=== PATIENT | female | born 1940 | race Hispanic/Latino ===

== ENCOUNTER 2022-06-27 12:36 | Inpatient (IN) | payer MEDICARE ==
[2022-06-27] MEDS ORDERED: MELATONIN 5 MG TAB PO PRN (20:35)
[2022-06-27] MEDS: traZODone 50 MG TAB PO SCH (21:12)
[2022-06-27] MEDS ORDERED: MEMANTINE 10 MG TAB PO SCH (22:00)
[2022-06-27 23:07] LABS: Basophils # (Auto) 0.1 K/mm3 (0.0-0.1); Basophils % (Auto) 0.8 % (0.0-1.8); Eosinophils % (Auto) 0.6 % (0.0-4.3); Hematocrit 39.9 % (30.3-42.9); Hemoglobin 13.2 gm/dl (10.1-14.3); Lymphocytes # (Auto) 1.2 K/mm3 (1.2-5.4); Lymphocytes % (Auto) 18.9 % (13.4-35.0); Mean Corpuscular HGB Conc 33 % (30-34); Mean Corpuscular Volume 88 fl (79-97); Monocytes # (Auto) 0.7 K/mm3 (0.0-0.8); Platelet Count 244 K/mm3 (140-440); Red Blood Count 4.52 M/mm3 (3.65-5.03); Red Cell Distribution Width 14.2 % (13.2-15.2)
[2022-06-28 02:37] LABS: Alanine Aminotransferase 13 units/L (7-56); Albumin 4.4 g/dL (3.9-5); Blood Urea Nitrogen 9 mg/dL (7-17); Calcium 9.9 mg/dL (8.4-10.2); Chol/HDL Ratio 2.73 %; HDL Cholesterol 69 mg/dL (40-59); Hemolysis Index 22; LDL Cholesterol,Direct 102 mg/dL (50-130)
[2022-06-28 03:04] LABS: BUN/Creatinine Ratio 13
[2022-06-28] MEDS ORDERED: NON-FORMULARY EACH (Apixaban 2.5 MG Tablet) PO SCH (10:00)
[2022-06-28] MEDS ORDERED: NON-FORMULARY EACH (Rosuvastatin Calcium [Crestor] 20 MG Tablet) PO SCH (10:00)
[2022-06-28] MEDS: PARoxetine 20 MG TAB PO SCH ×2 (10:17→10:23)
[2022-06-28] MEDS: MEMANTINE 10 MG TAB PO SCH ×3 (10:17→21:19)
[2022-06-28] MEDS: LISINOPRIL 5 MG TAB PO SCH ×2 (10:17→10:23)
--- NOTE | 2022-06-28 11:01 | History and Physical Report ---
GP History & Physical - History of Present Illness Date of admission: 06/27/22 Date of Examination: 06/28/22 Reason for Admission: Danger to self, Failure of Outpatient Treatment, Severe anxiety/depression, Unable to care for self History of Present Illness: The patient was seen today. [facility] for threatening to blow her brains out. During my evaluation, the patient is confused. She is pacing, and easily irritable. She is confused, with disorganized thoughts. She is delusional. She is walking around and appears to be looking for something. She says "I didn't hire you. You don't have to do anything. December on out of here." She is observed going into another patient's room. I parole hearing officer front of the door to try and keep her out. She pushes me to the side and goes in the room. The patient calls me an "asshole." Staff says the patient has been delusional, paranoid and hallucinating. REVIEW OF SYSTEMS Unable to assess MENTAL STATUS EXAMINATION Unable to assess Diagnoses: Dementia with Behavioral Disturbance Major Depressive Disorder Treatment Plan Patient admitted for inpatient psychiatric evaluation, medication adjustment and close monitoring The patient's behavior, mood, sleep and appetite will be closely monitored. Patient enrolled in individual and group therapeutic sessions and encouraged to attend. Patient provided with a safe and structured environment. Patient's physical health needs will be addressed by the Hospitalist. Hospitalist Consulted Labs including CBC, CMP, Lipid profile and Hemoglobin A1C levels ordered for baseline reference Social Assessment will be completed and the Outside Event Sales Specialist will work with patient and family to ensure a suitable and safe disposition Medication adjustment will be made as clinically indicated Restarted medications Risperidone 0.25mg po BID Usual Wellness [employer]/Preservation The patient agreed on the treatment plan, understood the risk, benefit, alternative treatment, potential consequence of no treatment, and gave informed consent. Estimated days: 7 Post hospital care: primary care provider, psychiatric provider Case staffed with Dr. Long Legal Status: Voluntary Reaction to Hospitalization: Accepting Medications and Allergies Allergies Allergy/AdvReac Type Severity Reaction Status Date / Time azithromycin Allergy Unknown Unverified 06/27/22 16:34 levofloxacin [From Levaquin] Allergy Unknown Unverified 06/27/22 16:34 oxytetracycline Allergy Unknown Unverified 06/27/22 16:34 [From Terramycin] Home Medications Medication Instructions Recorded Confirmed Last Taken Type Apixaban [Eliquis] 2.5 mg PO BID 06/27/22 06/27/22 Unknown History Lisinopril [Zestril] 5 mg PO DAILY 06/27/22 06/27/22 Unknown History Memantine [Namenda] 10 mg PO BID 06/27/22 06/27/22 Unknown History PARoxetine [Paxil] 20 mg PO DAILY 06/27/22 06/27/22 Unknown History Rosuvastatin Calcium [Crestor] 20 mg PO DAILY 06/27/22 06/27/22 Unknown History Active Meds: Active Medications Apixaban (Apixaban 2.5 Mg Tab) 2.5 mg PO BID [facility] Atorvastatin Calcium (Atorvastatin 40 Mg Tab) 80 mg PO QHS [facility] Lisinopril (Lisinopril 5 Mg Tab) 5 mg PO DAILY [facility] Last Admin: 06/28/22 10:23 Dose: Not Given Melatonin (Melatonin 5 Mg Tab) 5 mg PO QHS PRN PRN Reason: Sleep Last Admin: 06/28/22 00:35 Dose: 5 mg Memantine (Memantine 10 Mg Tab) 10 mg PO BID [facility] Last Admin: 06/28/22 10:22 Dose: Not Given Paroxetine HCl (Paroxetine 20 Mg Tab) 20 mg PO DAILY [facility] Last Admin: 06/28/22 10:23 Dose: Not Given Trazodone HCl (Trazodone 50 Mg Tab) 50 mg PO QHS [facility] Last Admin: 06/27/22 21:12 Dose: 50 mg Results - Results Labs/Vitals: Laboratory Last Values WBC 6.4 K/mm3 (4.5-11.0) 06/27/22 22:43 RBC 4.52 M/mm3 (3.65-5.03) 06/27/22 22:43 Hgb 13.2 gm/dl (10.1-14.3) 06/27/22 22:43 Hct 39.9 % (30.3-42.9) 06/27/22 22:43 MCV 88 fl (79-97) 06/27/22 22:43 MCH 29 pg (28-32) 06/27/22 22:43 MCHC 33 % (30-34) 06/27/22 22:43 RDW 14.2 % (13.2-15.2) 06/27/22 22:43 Plt Count 244 K/mm3 (140-440) 06/27/22 22:43 Lymph % (Auto) 18.9 % (13.4-35.0) 06/27/22 22:43 [place] % (Auto) 11.0 % (0.0-7.3) H 06/27/22 22:43 Eos % (Auto) 0.6 % (0.0-4.3) 06/27/22 22:43 Baso % (Auto) 0.8 % (0.0-1.8) 06/27/22 22:43 Lymph # (Auto) 1.2 K/mm3 (1.2-5.4) 06/27/22 22:43 [place] # (Auto) 0.7 K/mm3 (0.0-0.8) 06/27/22 22:43 Eos # (Auto) 0.0 K/mm3 (0.0-0.4) 06/27/22 22:43 Baso # (Auto) 0.1 K/mm3 (0.0-0.1) 06/27/22 22:43 Seg Neutrophils % 68.7 % (40.0-70.0) 06/27/22 22:43 Seg Neutrophils # 4.4 K/mm3 (1.8-7.7) 06/27/22 22:43 Sodium 140 mmol/L (137-145) 06/27/22 22:43 Potassium 3.9 mmol/L (3.6-5.0) 06/27/22 22:43 Chloride 101.3 mmol/L (98-107) 06/27/22 22:43 Carbon Dioxide 22 mmol/L (22-30) 06/27/22 22:43 Anion Gap 21 mmol/L 06/27/22 22:43 BUN 9 mg/dL (7-17) 06/27/22 22:43 Creatinine 0.7 mg/dL (0.6-1.2) 06/27/22 22:43 Estimated GFR > 60 ml/min 06/27/22 22:43 BUN/Creatinine Ratio 13 % 06/27/22 22:43 Glucose 109 mg/dL (65-100) H 06/27/22 22:43 POC Glucose 141 mg/dL (70-105) H 06/27/22 17:22 Hemoglobin A1c 5.5 % (4-6) 06/27/22 22:43 Calcium 9.9 mg/dL (8.4-10.2) 06/27/22 22:43 Total Bilirubin 1.40 mg/dL (0.1-1.2) H 06/27/22 22:43 AST 18 units/L (5-40) 06/27/22 22:43 ALT 13 units/L (7-56) 06/27/22 22:43 Alkaline Phosphatase 101 units/L (35-129) 06/27/22 22:43 Total Protein 6.4 g/dL (6.3-8.2) 06/27/22 22:43 Albumin 4.4 g/dL (3.9-5) 06/27/22 22:43 Albumin/Globulin Ratio 2.2 % 06/27/22 22:43 Triglycerides 83 mg/dL (2-149) 06/27/22 22:43 Cholesterol 189 mg/dL (50-199) 06/27/22 22:43 LDL Cholesterol Direct 102 mg/dL (50-130) 06/27/22 22:43 HDL Cholesterol 69 mg/dL (40-59) H 06/27/22 22:43 Cholesterol/HDL Ratio 2.73 % 06/27/22 22:43 TSH 2.570 mlU/mL (0.270-4.200) 06/27/22 22:43 Last Vital Signs Temp 97.5 F L 06/27/22 22:00 Pulse 90 06/27/22 22:00 Resp 18 06/27/22 22:00 BP 183/81 06/27/22 22:00 Pulse Ox 98 06/27/22 22:00 Physical Examination - Constitutional Vitals: Vital Signs Temp Pulse Resp BP Pulse Ox 97.5 F L 90 18 183/81 98 06/27/22 22:00 06/27/22 22:00 06/27/22 22:00 06/27/22 22:00 06/27/22 22:00 Temperature -Last 24 Hours Temperature 97.5 F Temperature 97.5 F Mental Status Exam - Vital signs Last Vital Signs Temp 97.5 F L 06/27/22 22:00 Pulse 90 06/27/22 22:00 Resp 18 06/27/22 22:00 BP 183/81 06/27/22 22:00 Pulse Ox 98 06/27/22 22:00 Physician Certification - Certification Statement Physician Certification Statement: This is an acknowledgement statement that YAZMIN RYAN is a 81 year old F who requires inpatient psychiatric admission for treatment which could reasonably be expected to improve the patient's condition for Estimated period of time patient will need to remain in the hospital: [ ] Plan for post-hospital care: [ ]
--- NOTE | 2022-06-28 11:14 | Consultation ---
Medications and Allergies Allergies Allergy/AdvReac Type Severity Reaction Status Date / Time azithromycin Allergy Unknown Unverified 06/27/22 16:34 levofloxacin [From Levaquin] Allergy Unknown Unverified 06/27/22 16:34 oxytetracycline Allergy Unknown Unverified 06/27/22 16:34 [From Terramycin] Home Medications Medication Instructions Recorded Confirmed Last Taken Type Apixaban [Eliquis] 2.5 mg PO BID 06/27/22 06/27/22 Unknown History Lisinopril [Zestril] 5 mg PO DAILY 06/27/22 06/27/22 Unknown History Memantine [Namenda] 10 mg PO BID 06/27/22 06/27/22 Unknown History PARoxetine [Paxil] 20 mg PO DAILY 06/27/22 06/27/22 Unknown History Rosuvastatin Calcium [Crestor] 20 mg PO DAILY 06/27/22 06/27/22 Unknown History Active Meds: Active Medications Apixaban (Apixaban 2.5 Mg Tab) 2.5 mg PO BID [facility] Atorvastatin Calcium (Atorvastatin 40 Mg Tab) 80 mg PO QHS [facility] Lisinopril (Lisinopril 5 Mg Tab) 5 mg PO DAILY [facility] Last Admin: 06/28/22 10:23 Dose: Not Given Melatonin (Melatonin 5 Mg Tab) 5 mg PO QHS PRN PRN Reason: Sleep Last Admin: 06/28/22 00:35 Dose: 5 mg Memantine (Memantine 10 Mg Tab) 10 mg PO BID [facility] Last Admin: 06/28/22 10:22 Dose: Not Given Paroxetine HCl (Paroxetine 20 Mg Tab) 20 mg PO DAILY [facility] Last Admin: 06/28/22 10:23 Dose: Not Given Risperidone (Risperidone 0.25 Mg Tab) 0.25 mg PO BID [facility] Trazodone HCl (Trazodone 50 Mg Tab) 50 mg PO QHS [facility] Last Admin: 06/27/22 21:12 Dose: 50 mg Exam - Constitutional Vitals: Temp Pulse Resp BP Pulse Ox 97.5 F L 90 18 183/81 98 06/27/22 22:00 06/27/22 22:00 06/27/22 22:00 06/27/22 22:00 06/27/22 22:00 Results - Labs CBC & Chem 7: 06/27/22 22:43 06/27/22 22:43 Labs: Abnormal lab results 06/27/22 06/27/22 06/27/22 Range/Units 17:22 22:43 22:43 [place] % (Auto) 11.0 H (0.0-7.3) % Glucose 109 H (65-100) mg/dL POC Glucose 141 H (70-105) mg/dL Total Bilirubin 1.40 H (0.1-1.2) mg/dL HDL Cholesterol 69 H (40-59) mg/dL
[2022-06-28] MEDS: APIXABAN 2.5 MG TAB PO SCH ×2 (11:33→21:19)
[2022-06-28] MEDS: risperiDONE 0.25 MG TAB PO SCH ×2 (13:35→21:19)
[2022-06-28] MEDS: traZODone 50 MG TAB PO SCH (21:19)
[2022-06-29] MEDS: PARoxetine 20 MG TAB PO SCH (10:22)
[2022-06-29] MEDS: MEMANTINE 10 MG TAB PO SCH ×2 (10:22→21:53)
[2022-06-29] MEDS: risperiDONE 0.25 MG TAB PO SCH ×2 (10:22→21:53)
[2022-06-29] MEDS: APIXABAN 2.5 MG TAB PO SCH ×2 (10:23→21:53)
[2022-06-29] MEDS: LISINOPRIL 5 MG TAB PO SCH (10:25)
--- NOTE | 2022-06-29 12:03 | Progress Note ---
Subjective Date of service: 06/29/22 Principal diagnosis: Dementia with Behavioral Disturbance Subjective Comment: The patient was seen today. She's less anxious today. She is still confused and delusional. She is speaking nonsensically. REVIEW OF SYSTEMS Unable to assess MENTAL STATUS EXAMINATION Unable to assess Diagnoses: Dementia with Behavioral Disturbance Major Depressive Disorder Treatment Plan Patient admitted for inpatient psychiatric evaluation, medication adjustment and close monitoring The patient's behavior, mood, sleep and appetite will be closely monitored. Patient enrolled in individual and group therapeutic sessions and encouraged to attend. Patient provided with a safe and structured environment. Patient's physical health needs will be addressed by the Hospitalist. Hospitalist Consulted Labs including CBC, CMP, Lipid profile and Hemoglobin A1C levels ordered for baseline reference Social Assessment will be completed and the Narrow Gauge Engineer will work with patient and family to ensure a suitable and safe disposition Medication adjustment will be made as clinically indicated Increase Risperidone 0.5mg po BID Usual Wellness L[employer] Day/Preservation The patient agreed on the treatment plan, understood the risk, benefit, alternative treatment, potential consequence of no treatment, and gave informed consent. Estimated days: 7 Post hospital care: primary care provider, psychiatric provider Case staffed with Dr. Long Medications and Allergies Allergies Allergy/AdvReac Type Severity Reaction Status Date / Time azithromycin Allergy Unknown Unverified 06/27/22 16:34 levofloxacin [From Levaquin] Allergy Unknown Unverified 06/27/22 16:34 oxytetracycline Allergy Unknown Unverified 06/27/22 16:34 [From Terramycin] Home Medications Medication Instructions Recorded Confirmed Last Taken Type Apixaban [Eliquis] 2.5 mg PO BID 06/27/22 06/27/22 Unknown History Lisinopril [Zestril] 5 mg PO DAILY 06/27/22 06/27/22 Unknown History Memantine [Namenda] 10 mg PO BID 06/27/22 06/27/22 Unknown History PARoxetine [Paxil] 20 mg PO DAILY 06/27/22 06/27/22 Unknown History Rosuvastatin Calcium [Crestor] 20 mg PO DAILY 06/27/22 06/27/22 Unknown History Active Meds: Active Medications Apixaban (Apixaban 2.5 Mg Tab) 2.5 mg PO BID [facility] Last Admin: 06/29/22 10:23 Dose: 2.5 mg Atorvastatin Calcium (Atorvastatin 40 Mg Tab) 80 mg PO QHS [facility] Last Admin: 06/28/22 21:15 Dose: 80 mg Lisinopril (Lisinopril 5 Mg Tab) 5 mg PO DAILY [facility] Last Admin: 06/29/22 10:25 Dose: 5 mg Melatonin (Melatonin 5 Mg Tab) 5 mg PO QHS PRN PRN Reason: Sleep Last Admin: 06/28/22 00:35 Dose: 5 mg Memantine (Memantine 10 Mg Tab) 10 mg PO BID [facility] Last Admin: 06/29/22 10:22 Dose: 10 mg Paroxetine HCl (Paroxetine 20 Mg Tab) 20 mg PO DAILY [facility] Last Admin: 06/29/22 10:22 Dose: 20 mg Risperidone (Risperidone 0.25 Mg Tab) 0.25 mg PO BID [facility] Last Admin: 06/29/22 10:22 Dose: 0.25 mg Trazodone HCl (Trazodone 50 Mg Tab) 50 mg PO QHS [facility] Last Admin: 06/28/22 21:19 Dose: 50 mg Results - Results Labs/Vitals: Laboratory Last Values WBC 6.4 K/mm3 (4.5-11.0) 06/27/22 22:43 RBC 4.52 M/mm3 (3.65-5.03) 06/27/22 22:43 Hgb 13.2 gm/dl (10.1-14.3) 06/27/22 22:43 Hct 39.9 % (30.3-42.9) 06/27/22 22:43 MCV 88 fl (79-97) 06/27/22 22:43 MCH 29 pg (28-32) 06/27/22 22:43 MCHC 33 % (30-34) 06/27/22 22:43 RDW 14.2 % (13.2-15.2) 06/27/22 22:43 Plt Count 244 K/mm3 (140-440) 06/27/22 22:43 Lymph % (Auto) 18.9 % (13.4-35.0) 06/27/22 22:43 [place] % (Auto) 11.0 % (0.0-7.3) H 06/27/22 22:43 Eos % (Auto) 0.6 % (0.0-4.3) 06/27/22 22:43 Baso % (Auto) 0.8 % (0.0-1.8) 06/27/22 22:43 Lymph # (Auto) 1.2 K/mm3 (1.2-5.4) 06/27/22 22:43 [place] # (Auto) 0.7 K/mm3 (0.0-0.8) 06/27/22 22:43 Eos # (Auto) 0.0 K/mm3 (0.0-0.4) 06/27/22 22:43 Baso # (Auto) 0.1 K/mm3 (0.0-0.1) 06/27/22 22:43 Seg Neutrophils % 68.7 % (40.0-70.0) 06/27/22 22:43 Seg Neutrophils # 4.4 K/mm3 (1.8-7.7) 06/27/22 22:43 Sodium 140 mmol/L (137-145) 06/27/22 22:43 Potassium 3.9 mmol/L (3.6-5.0) 06/27/22 22:43 Chloride 101.3 mmol/L (98-107) 06/27/22 22:43 Carbon Dioxide 22 mmol/L (22-30) 06/27/22 22:43 Anion Gap 21 mmol/L 06/27/22 22:43 BUN 9 mg/dL (7-17) 06/27/22 22:43 Creatinine 0.7 mg/dL (0.6-1.2) 06/27/22 22:43 Estimated GFR > 60 ml/min 06/27/22 22:43 BUN/Creatinine Ratio 13 % 06/27/22 22:43 Glucose 109 mg/dL (65-100) H 06/27/22 22:43 POC Glucose 141 mg/dL (70-105) H 06/27/22 17:22 Hemoglobin A1c 5.5 % (4-6) 06/27/22 22:43 Calcium 9.9 mg/dL (8.4-10.2) 06/27/22 22:43 Total Bilirubin 1.40 mg/dL (0.1-1.2) H 06/27/22 22:43 AST 18 units/L (5-40) 06/27/22 22:43 ALT 13 units/L (7-56) 06/27/22 22:43 Alkaline Phosphatase 101 units/L (35-129) 06/27/22 22:43 Total Protein 6.4 g/dL (6.3-8.2) 06/27/22 22:43 Albumin 4.4 g/dL (3.9-5) 06/27/22 22:43 Albumin/Globulin Ratio 2.2 % 06/27/22 22:43 Triglycerides 83 mg/dL (2-149) 06/27/22 22:43 Cholesterol 189 mg/dL (50-199) 06/27/22 22:43 LDL Cholesterol Direct 102 mg/dL (50-130) 06/27/22 22:43 HDL Cholesterol 69 mg/dL (40-59) H 06/27/22 22:43 Cholesterol/HDL Ratio 2.73 % 06/27/22 22:43 TSH 2.570 mlU/mL (0.270-4.200) 06/27/22 22:43 Last Vital Signs Temp 98.2 F 06/29/22 06:49 Pulse 90 06/29/22 10:25 Resp 18 06/29/22 06:49 BP 157/67 06/29/22 10:25 Pulse Ox 93 06/29/22 06:49
[2022-06-29] MEDS: traZODone 100 MG TAB PO SCH (22:00)
[2022-06-30] MEDS: APIXABAN 2.5 MG TAB PO SCH ×2 (10:17→21:22)
[2022-06-30] MEDS: MEMANTINE 10 MG TAB PO SCH ×2 (10:17→21:22)
[2022-06-30] MEDS: PARoxetine 20 MG TAB PO SCH (10:17)
[2022-06-30] MEDS: LISINOPRIL 5 MG TAB PO SCH (10:18)
[2022-06-30] MEDS: risperiDONE 0.25 MG TAB PO SCH ×2 (10:18→21:22)
[2022-06-30] MEDS: traZODone 100 MG TAB PO SCH (21:22)
[2022-07-01] MEDS: PARoxetine 20 MG TAB PO SCH (09:47)
[2022-07-01] MEDS: MEMANTINE 10 MG TAB PO SCH ×2 (09:47→21:10)
[2022-07-01] MEDS: risperiDONE 0.25 MG TAB PO SCH ×2 (09:48→21:10)
[2022-07-01] MEDS: APIXABAN 2.5 MG TAB PO SCH ×2 (09:48→21:09)
[2022-07-01] MEDS: LISINOPRIL 5 MG TAB PO SCH (09:48)
[2022-07-01] MEDS: traZODone 100 MG TAB PO SCH (21:09)
--- NOTE | 2022-07-01 23:11 | Progress Note ---
Subjective Date of service: 06/30/22 Principal diagnosis: Dementia with Behavioral Disturbance Subjective Comment: 06/30: Patient was seen today. Patient was alert, disoriented x3, but cooperative throughout the interview. Patient responds tangentially throughout the interview. Patient reports feeling "not so hot yet." Patient reports she's not able to remember why she was brought to the hospital. "I have no idea how this got so horrible." Patient denies feeling depressed and denies history of suicidal ideation with protective factors of her grandchildren "I don't want to leave them." Patient reports anxiety d/t missing her grandchildren. Patient reports feeling fearful because she doesn't know why she's here. Patient reports good sleep and good appetite. Patient denies HI AVH. PAST PSYCHIATRIC HISTORY: Diagnoses: Denies Suicide attempts or Self-harm behavior: Denies Prior psychiatric hospitalizations: Denies Substance Abuse history: Denies Previous psychiatric medications tried: Denies Outpatient treatment: Denies PAST MEDICAL HISTORY: None reported Family Psychiatric History: None reported or documented SOCIAL HISTORY Marital Status: Living Arrangements: with Employment Status: Retired Access to guns/weapons: Denies History of Abuse:Denies Legal History: Denies REVIEW OF SYSTEMS Constitutional: Negative for weight loss ENT: Negative for stridor Respiratory: Negative for cough or hemoptysis All other systems reviewed and are negative MENTAL STATUS EXAMINATION General Appearance and Behavior: Age appropriate, wearing appropriate clothes, cooperative Cooperation: cooperative Psychomotor Behavior: Psychomotor normal Mood: anxious, fearful Affect and affective range: congruent with stated affect, appropriate to situation Thought Process: Goal-oriented, tangential Thought Content: Reality based Speech: Normal volume, Regular rate and rhythm Suicidal Ideation: Denies Homicidal Ideation: Denies Hallucination: Denies Delusions: Denies Impulse Control: Normal Insight and Judgment: Poor Memory: Poor Attention: Distracted Orientation: Alert, not oriented Diagnoses: Dementia with Behavioral Disturbance Major Depressive Disorder Treatment Plan Patient admitted for inpatient psychiatric evaluation, medication adjustment and close monitoring The patient's behavior, mood, sleep and appetite will be closely monitored. Patient enrolled in individual and group therapeutic sessions and encouraged to attend. Patient provided with a safe and structured environment. Patient's physical health needs will be addressed by the Hospitalist. Hospitalist Consulted Labs including CBC, CMP, Lipid profile and Hemoglobin A1C levels ordered for baseline reference Social Assessment will be completed and the Weigher And Grader will work with patient and family to ensure a suitable and safe disposition Medication adjustment will be made as clinically indicated Maintain Risperidone 0.5mg po BID Usual Wellness [employer]/Preservation The patient agreed on the treatment plan, understood the risk, benefit, alternative treatment, potential consequence of no treatment, and gave informed consent. Estimated days: 7 Post hospital care: primary care provider, psychiatric provider Case staffed with Dr. Long Medications and Allergies Allergies Allergy/AdvReac Type Severity Reaction Status Date / Time azithromycin Allergy Unknown Unverified 06/27/22 16:34 levofloxacin [From Levaquin] Allergy Unknown Unverified 06/27/22 16:34 oxytetracycline Allergy Unknown Unverified 06/27/22 16:34 [From Terramycin] Home Medications Medication Instructions Recorded Confirmed Last Taken Type Apixaban [Eliquis] 2.5 mg PO BID 06/27/22 06/27/22 Unknown History Lisinopril [Zestril] 5 mg PO DAILY 06/27/22 06/27/22 Unknown History Memantine [Namenda] 10 mg PO BID 06/27/22 06/27/22 Unknown History PARoxetine [Paxil] 20 mg PO DAILY 06/27/22 06/27/22 Unknown History Rosuvastatin Calcium [Crestor] 20 mg PO DAILY 06/27/22 06/27/22 Unknown History Active Meds: Active Medications Apixaban (Apixaban 2.5 Mg Tab) 2.5 mg PO BID [facility] Last Admin: 07/01/22 21:09 Dose: 2.5 mg Atorvastatin Calcium (Atorvastatin 40 Mg Tab) 80 mg PO QHS [facility] Last Admin: 07/01/22 21:10 Dose: 80 mg Lisinopril (Lisinopril 5 Mg Tab) 5 mg PO DAILY [facility] Last Admin: 07/01/22 09:48 Dose: 5 mg Melatonin (Melatonin 5 Mg Tab) 5 mg PO QHS PRN PRN Reason: Sleep Last Admin: 06/28/22 00:35 Dose: 5 mg Memantine (Memantine 10 Mg Tab) 10 mg PO BID [facility] Last Admin: 07/01/22 21:10 Dose: 10 mg Paroxetine HCl (Paroxetine 20 Mg Tab) 20 mg PO DAILY [facility] Last Admin: 07/01/22 09:47 Dose: 20 mg Risperidone (Risperidone 0.25 Mg Tab) 0.5 mg PO BID [facility] Last Admin: 07/01/22 21:10 Dose: 0.5 mg Trazodone HCl (Trazodone 100 Mg Tab) 50 mg PO QHS [facility] Last Admin: 07/01/22 21:09 Dose: 50 mg Results - Results Labs/Vitals: Laboratory Last Values WBC 6.4 K/mm3 (4.5-11.0) 06/27/22 22:43 RBC 4.52 M/mm3 (3.65-5.03) 06/27/22 22:43 Hgb 13.2 gm/dl (10.1-14.3) 06/27/22 22:43 Hct 39.9 % (30.3-42.9) 06/27/22 22:43 MCV 88 fl (79-97) 06/27/22 22:43 MCH 29 pg (28-32) 06/27/22 22:43 MCHC 33 % (30-34) 06/27/22 22:43 RDW 14.2 % (13.2-15.2) 06/27/22 22:43 Plt Count 244 K/mm3 (140-440) 06/27/22 22:43 Lymph % (Auto) 18.9 % (13.4-35.0) 06/27/22 22:43 [place] % (Auto) 11.0 % (0.0-7.3) H 06/27/22 22:43 Eos % (Auto) 0.6 % (0.0-4.3) 06/27/22 22:43 Baso % (Auto) 0.8 % (0.0-1.8) 06/27/22 22:43 Lymph # (Auto) 1.2 K/mm3 (1.2-5.4) 06/27/22 22:43 [place] # (Auto) 0.7 K/mm3 (0.0-0.8) 06/27/22 22:43 Eos # (Auto) 0.0 K/mm3 (0.0-0.4) 06/27/22 22:43 Baso # (Auto) 0.1 K/mm3 (0.0-0.1) 06/27/22 22:43 Seg Neutrophils % 68.7 % (40.0-70.0) 06/27/22 22:43 Seg Neutrophils # 4.4 K/mm3 (1.8-7.7) 06/27/22 22:43 Sodium 140 mmol/L (137-145) 06/27/22 22:43 Potassium 3.9 mmol/L (3.6-5.0) 06/27/22 22:43 Chloride 101.3 mmol/L (98-107) 06/27/22 22:43 Carbon Dioxide 22 mmol/L (22-30) 06/27/22 22:43 Anion Gap 21 mmol/L 06/27/22 22:43 BUN 9 mg/dL (7-17) 06/27/22 22:43 Creatinine 0.7 mg/dL (0.6-1.2) 06/27/22 22:43 Estimated GFR > 60 ml/min 06/27/22 22:43 BUN/Creatinine Ratio 13 % 06/27/22 22:43 Glucose 109 mg/dL (65-100) H 06/27/22 22:43 POC Glucose 141 mg/dL (70-105) H 06/27/22 17:22 Hemoglobin A1c 5.5 % (4-6) 06/27/22 22:43 Calcium 9.9 mg/dL (8.4-10.2) 06/27/22 22:43 Total Bilirubin 1.40 mg/dL (0.1-1.2) H 06/27/22 22:43 AST 18 units/L (5-40) 06/27/22 22:43 ALT 13 units/L (7-56) 06/27/22 22:43 Alkaline Phosphatase 101 units/L (35-129) 06/27/22 22:43 Total Protein 6.4 g/dL (6.3-8.2) 06/27/22 22:43 Albumin 4.4 g/dL (3.9-5) 06/27/22 22:43 Albumin/Globulin Ratio 2.2 % 06/27/22 22:43 Triglycerides 83 mg/dL (2-149) 06/27/22 22:43 Cholesterol 189 mg/dL (50-199) 06/27/22 22:43 LDL Cholesterol Direct 102 mg/dL (50-130) 06/27/22 22:43 HDL Cholesterol 69 mg/dL (40-59) H 06/27/22 22:43 Cholesterol/HDL Ratio 2.73 % 06/27/22 22:43 TSH 2.570 mlU/mL (0.270-4.200) 06/27/22 22:43 Last Vital Signs Temp 98.0 F 07/01/22 18:44 Pulse 68 07/01/22 18:44 Resp 16 07/01/22 18:44 BP 134/65 07/01/22 18:44 Pulse Ox 94 07/01/22 18:44
--- NOTE | 2022-07-01 23:29 | Progress Note ---
Subjective Date of service: 07/01/22 Principal diagnosis: Dementia with Behavioral Disturbance Subjective Comment: 07/01: Patient was seen today. Patient was alert, disoriented x3, but cooperative throughout the interview. Patient responds tangentially throughout the interview. Patient reports feeling disappointed because she wasn't able to go home yesterday. Patient reports "I was praying I was going home. It was a little bit of a let down." Patient denies suicidal ideation "I don't never want to hurt myself." Patient repeatedly references her parents "who are up in their ages." Patient unable to tell me what year is it, where she is, who the last president was. Patient reports thinking about having someone come in for half the day to help take care of her when she leaves the hospital. Patient reports good sleep and good appetite. Patient denies HI AVH. 06/30: Patient was seen today. Patient was alert, disoriented x3, but cooperative throughout the interview. Patient responds tangentially throughout the interview. Patient reports feeling "not so hot yet." Patient reports she's not able to remember why she was brought to the hospital. "I have no idea how this got so horrible." Patient denies feeling depressed and denies history of suicidal ideation with protective factors of her grandchildren "I don't want to leave them." Patient reports anxiety d/t missing her grandchildren. Patient reports feeling fearful because she doesn't know why she's here. Patient reports good sleep and good appetite. Patient denies HI AVH. PAST PSYCHIATRIC HISTORY: Diagnoses: Denies Suicide attempts or Self-harm behavior: Denies Prior psychiatric hospitalizations: Denies Substance Abuse history: Denies Previous psychiatric medications tried: Denies Outpatient treatment: Denies PAST MEDICAL HISTORY: None reported Family Psychiatric History: None reported or documented SOCIAL HISTORY Marital Status: Living Arrangements: with Employment Status: Retired Access to guns/weapons: Denies History of Abuse:Denies Legal History: Denies REVIEW OF SYSTEMS Constitutional: Negative for weight loss ENT: Negative for stridor Respiratory: Negative for cough or hemoptysis All other systems reviewed and are negative MENTAL STATUS EXAMINATION General Appearance and Behavior: Age appropriate, wearing appropriate clothes, cooperative Cooperation: cooperative Psychomotor Behavior: Psychomotor normal Mood: "disappointed," Affect and affective range: congruent with stated affect, tearful Thought Process: Goal-oriented, tangential Thought Content: Reality based Speech: Normal volume, Regular rate and rhythm Suicidal Ideation: Denies Homicidal Ideation: Denies Hallucination: Denies Delusions: Denies Impulse Control: Normal Insight and Judgment: Poor Memory: Poor Attention: Distracted Orientation: Alert, not oriented Diagnoses: Dementia with Behavioral Disturbance Major Depressive Disorder Treatment Plan Patient admitted for inpatient psychiatric evaluation, medication adjustment and close monitoring The patient's behavior, mood, sleep and appetite will be closely monitored. Patient enrolled in individual and group therapeutic sessions and encouraged to attend. Patient provided with a safe and structured environment. Patient's physical health needs will be addressed by the Hospitalist. Hospitalist Consulted Labs including CBC, CMP, Lipid profile and Hemoglobin A1C levels ordered for baseline reference Social Assessment will be completed and the Pit Inspector will work with patient and family to ensure a suitable and safe disposition Medication adjustment will be made as clinically indicated Maintain Risperidone 0.5mg po BID [facility]ual [facility]ness [facility]/Preservation The patient agreed on the treatment plan, understood the risk, benefit, alternative treatment, potential consequence of no treatment, and gave informed consent. Estimated days: 7 Post hospital care: primary care provider, psychiatric provider Case staffed with Dr. Long Medications and Allergies Allergies Allergy/AdvReac Type Severity Reaction Status Date / Time azithromycin Allergy Unknown Unverified 06/27/22 16:34 levofloxacin [From Levaquin] Allergy Unknown Unverified 06/27/22 16:34 oxytetracycline Allergy Unknown Unverified 06/27/22 16:34 [From Terramycin] Home Medications Medication Instructions Recorded Confirmed Last Taken Type Apixaban [Eliquis] 2.5 mg PO BID 06/27/22 06/27/22 Unknown History Lisinopril [Zestril] 5 mg PO DAILY 06/27/22 06/27/22 Unknown History Memantine [Namenda] 10 mg PO BID 06/27/22 06/27/22 Unknown History PARoxetine [Paxil] 20 mg PO DAILY 06/27/22 06/27/22 Unknown History Rosuvastatin Calcium [Crestor] 20 mg PO DAILY 06/27/22 06/27/22 Unknown History Active Meds: Active Medications Apixaban (Apixaban 2.5 Mg Tab) 2.5 mg PO BID SUNDAY Last Admin: 07/01/22 21:09 Dose: 2.5 mg Atorvastatin Calcium (Atorvastatin 40 Mg Tab) 80 mg PO QHS [facility] Last Admin: 07/01/22 21:10 Dose: 80 mg Lisinopril (Lisinopril 5 Mg Tab) 5 mg PO DAILY [facility] Last Admin: 07/01/22 09:48 Dose: 5 mg Melatonin (Melatonin 5 Mg Tab) 5 mg PO QHS PRN PRN Reason: Sleep Last Admin: 06/28/22 00:35 Dose: 5 mg Memantine (Memantine 10 Mg Tab) 10 mg PO BID [facility] Last Admin: 07/01/22 21:10 Dose: 10 mg Paroxetine HCl (Paroxetine 20 Mg Tab) 20 mg PO DAILY [facility] Last Admin: 07/01/22 09:47 Dose: 20 mg Risperidone (Risperidone 0.25 Mg Tab) 0.5 mg PO BID [facility] Last Admin: 07/01/22 21:10 Dose: 0.5 mg Trazodone HCl (Trazodone 100 Mg Tab) 50 mg PO QHS [facility] Last Admin: 07/01/22 21:09 Dose: 50 mg Results - Results Labs/Vitals: Laboratory Last Values WBC 6.4 K/mm3 (4.5-11.0) 06/27/22 22:43 RBC 4.52 M/mm3 (3.65-5.03) 06/27/22 22:43 Hgb 13.2 gm/dl (10.1-14.3) 06/27/22 22:43 Hct 39.9 % (30.3-42.9) 06/27/22 22:43 MCV 88 fl (79-97) 06/27/22 22:43 MCH 29 pg (28-32) 06/27/22 22:43 MCHC 33 % (30-34) 06/27/22 22:43 RDW 14.2 % (13.2-15.2) 06/27/22 22:43 Plt Count 244 K/mm3 (140-440) 06/27/22 22:43 Lymph % (Auto) 18.9 % (13.4-35.0) 06/27/22 22:43 Kay % (Auto) 11.0 % (0.0-7.3) H 06/27/22 22:43 Eos % (Auto) 0.6 % (0.0-4.3) 06/27/22 22:43 Baso % (Auto) 0.8 % (0.0-1.8) 06/27/22 22:43 Lymph # (Auto) 1.2 K/mm3 (1.2-5.4) 06/27/22 22:43 Kay # (Auto) 0.7 K/mm3 (0.0-0.8) 06/27/22 22:43 Eos # (Auto) 0.0 K/mm3 (0.0-0.4) 06/27/22 22:43 Baso # (Auto) 0.1 K/mm3 (0.0-0.1) 06/27/22 22:43 Seg Neutrophils % 68.7 % (40.0-70.0) 06/27/22 22:43 Seg Neutrophils # 4.4 K/mm3 (1.8-7.7) 06/27/22 22:43 Sodium 140 mmol/L (137-145) 06/27/22 22:43 Potassium 3.9 mmol/L (3.6-5.0) 06/27/22 22:43 Chloride 101.3 mmol/L (98-107) 06/27/22 22:43 Carbon Dioxide 22 mmol/L (22-30) 06/27/22 22:43 Anion Gap 21 mmol/L 06/27/22 22:43 BUN 9 mg/dL (7-17) 06/27/22 22:43 Creatinine 0.7 mg/dL (0.6-1.2) 06/27/22 22:43 Estimated GFR > 60 ml/min 06/27/22 22:43 BUN/Creatinine Ratio 13 % 06/27/22 22:43 Glucose 109 mg/dL (65-100) H 06/27/22 22:43 POC Glucose 141 mg/dL (70-105) H 06/27/22 17:22 Hemoglobin A1c 5.5 % (4-6) 06/27/22 22:43 Calcium 9.9 mg/dL (8.4-10.2) 06/27/22 22:43 Total Bilirubin 1.40 mg/dL (0.1-1.2) H 06/27/22 22:43 AST 18 units/L (5-40) 06/27/22 22:43 ALT 13 units/L (7-56) 06/27/22 22:43 Alkaline Phosphatase 101 units/L (35-129) 06/27/22 22:43 Total Protein 6.4 g/dL (6.3-8.2) 06/27/22 22:43 Albumin 4.4 g/dL (3.9-5) 06/27/22 22:43 Albumin/Globulin Ratio 2.2 % 06/27/22 22:43 Triglycerides 83 mg/dL (2-149) 06/27/22 22:43 Cholesterol 189 mg/dL (50-199) 06/27/22 22:43 LDL Cholesterol Direct 102 mg/dL (50-130) 06/27/22 22:43 HDL Cholesterol 69 mg/dL (40-59) H 06/27/22 22:43 Cholesterol/HDL Ratio 2.73 % 06/27/22 22:43 TSH 2.570 mlU/mL (0.270-4.200) 06/27/22 22:43 Last Vital Signs Temp 98.0 F 07/01/22 18:44 Pulse 68 07/01/22 18:44 Resp 16 07/01/22 18:44 BP 134/65 07/01/22 18:44 Pulse Ox 94 07/01/22 18:44
--- NOTE | 2022-07-02 09:06 | Progress Note ---
Subjective Date of service: 07/02/22 Principal diagnosis: Dementia with Behavioral Disturbance Subjective Comment: 07/02: Patient was seen today. Patient was alert, disoriented x3, and cooperative but tangential throughout the interview. Patient reports feeling "just as well as I've always been." Patient reports "getting in the dumps," yesterday because she couldn't get home to her parents, who live next door to her and her in [place], [place]. Patient became tearful while talking about how her parents are older and don't have much time left on this earth, and she wants to see them. Patient interested in contacting family to let them know where she is. Patient reports feeling okay today. Patient denies suicidal ideation, homicidal ideation, and hallucinations. Patient reports good sleep and appetite. 07/01: Patient was seen today. Patient was alert, disoriented x3, but cooperative throughout the interview. Patient responds tangentially throughout the interview. Patient reports feeling disappointed because she wasn't able to go home yesterday. Patient reports "I was praying I was going home. It was a little bit of a let down." Patient denies suicidal ideation "I don't never want to hurt myself." Patient repeatedly references her parents "who are up in their ages." Patient unable to tell me what year is it, where she is, who the last president was. Patient reports thinking about having someone come in for half the day to help take care of her when she leaves the hospital. Patient reports good sleep and good appetite. Patient denies HI AVH. 06/30: Patient was seen today. Patient was alert, disoriented x3, but cooperative throughout the interview. Patient responds tangentially throughout the interview. Patient reports feeling "not so hot yet." Patient reports she's not able to remember why she was brought to the hospital. "I have no idea how this got so horrible." Patient denies feeling depressed and denies history of suicidal ideation with protective factors of her grandchildren "I don't want to leave them." Patient reports anxiety d/t missing her grandchildren. Patient reports feeling fearful because she doesn't know why she's here. Patient reports good sleep and good appetite. Patient denies HI AVH. 06/29: The patient was seen today. She's less anxious today. She is still confused and delusional. She is speaking nonsensically. 06/28: The patient was seen today. She was admitted to [facility] for threatening to blow her brains out. During my evaluation, the patient is confused. She is pacing, and easily irritable. She is confused, with disorganized thoughts. She is delusional. She is walking around and appears to be looking for something. She says "I didn't hire you. You don't have to do anything. December on out of here." She is observed going into another patient's room. I instructor of nursing front of the door to try and keep her out. She pushes me to the side and goes in the room. The patient calls me an "asshole." Staff says the patient has been delusional, paranoid and hallucinating. PAST PSYCHIATRIC HISTORY: Diagnoses: Denies Suicide attempts or Self-harm behavior: Denies Prior psychiatric hospitalizations: Denies Substance Abuse history: Denies Previous psychiatric medications tried: Denies Outpatient treatment: Denies PAST MEDICAL HISTORY: None reported Family Psychiatric History: None reported or documented SOCIAL HISTORY Marital Status: Living Arrangements: with Employment Status: Retired Access to guns/weapons: Denies History of Abuse:Denies Legal History: Denies REVIEW OF SYSTEMS Constitutional: Negative for weight loss ENT: Negative for stridor Respiratory: Negative for cough or hemoptysis All other systems reviewed and are negative MENTAL STATUS EXAMINATION General Appearance and Behavior: Age appropriate, wearing appropriate clothes, cooperative, pleasant Cooperation: cooperative Psychomotor Behavior: Psychomotor normal Mood: "okay," Affect and affective range: calm throughout, tearful Thought Process: Goal-oriented, tangential Thought Content: Reality based Speech: Normal volume, Regular rate and rhythm Suicidal Ideation: Denies Homicidal Ideation: Denies Hallucination: Denies Delusions: Denies Impulse Control: Normal Insight and Judgment: Fair Memory: Poor Attention: Distracted Orientation: Alert, not oriented Diagnoses: Dementia with Behavioral Disturbance Major Depressive Disorder Treatment Plan Patient admitted for inpatient psychiatric evaluation, medication adjustment and close monitoring The patient's behavior, mood, sleep and appetite will be closely monitored. Patient enrolled in individual and group therapeutic sessions and encouraged to attend. Patient provided with a safe and structured environment. Patient's physical health needs will be addressed by the Hospitalist. Hospitalist Consulted Labs including CBC, CMP, Lipid profile and Hemoglobin A1C levels ordered for baseline reference Social Assessment will be completed and the Space Buyer will work with patient and family to ensure a suitable and safe disposition Medication adjustment will be made as clinically indicated Maintain Risperidone 0.5mg po BID Discharge recommended tomorrow pending uneventful 24 hour report Usual Wellness [facility]/Preservation The patient agreed on the treatment plan, understood the risk, benefit, alternative treatment, potential consequence of no treatment, and gave informed consent. Estimated days: 1 Post hospital care: primary care provider, psychiatric provider Case staffed with Dr. Long Medications and Allergies Allergies Allergy/AdvReac Type Severity Reaction Status Date / Time azithromycin Allergy Unknown Unverified 06/27/22 16:34 levofloxacin [From Levaquin] Allergy Unknown Unverified 06/27/22 16:34 oxytetracycline Allergy Unknown Unverified 06/27/22 16:34 [From Terramycin] Home Medications Medication Instructions Recorded Confirmed Last Taken Type Apixaban [Eliquis] 2.5 mg PO BID 06/27/22 06/27/22 Unknown History Lisinopril [Zestril] 5 mg PO DAILY 06/27/22 06/27/22 Unknown History Memantine [Namenda] 10 mg PO BID 06/27/22 06/27/22 Unknown History PARoxetine [Paxil] 20 mg PO DAILY 06/27/22 06/27/22 Unknown History Rosuvastatin Calcium [Crestor] 20 mg PO DAILY 06/27/22 06/27/22 Unknown History Active Meds: Active Medications Apixaban (Apixaban 2.5 Mg Tab) 2.5 mg PO BID [facility] Last Admin: 07/01/22 21:09 Dose: 2.5 mg Atorvastatin Calcium (Atorvastatin 40 Mg Tab) 80 mg PO QHS [facility] Last Admin: 07/01/22 21:10 Dose: 80 mg Lisinopril (Lisinopril 5 Mg Tab) 5 mg PO DAILY [facility] Last Admin: 07/01/22 09:48 Dose: 5 mg Melatonin (Melatonin 5 Mg Tab) 5 mg PO QHS PRN PRN Reason: Sleep Last Admin: 06/28/22 00:35 Dose: 5 mg Memantine (Memantine 10 Mg Tab) 10 mg PO BID [facility] Last Admin: 07/01/22 21:10 Dose: 10 mg Paroxetine HCl (Paroxetine 20 Mg Tab) 20 mg PO DAILY [facility] Last Admin: 07/01/22 09:47 Dose: 20 mg Risperidone (Risperidone 0.25 Mg Tab) 0.5 mg PO BID [facility] Last Admin: 07/01/22 21:10 Dose: 0.5 mg Trazodone HCl (Trazodone 100 Mg Tab) 50 mg PO QHS [facility] Last Admin: 07/01/22 21:09 Dose: 50 mg Results - Results Labs/Vitals: Laboratory Last Values WBC 6.4 K/mm3 (4.5-11.0) 06/27/22 22:43 RBC 4.52 M/mm3 (3.65-5.03) 06/27/22 22:43 Hgb 13.2 gm/dl (10.1-14.3) 06/27/22 22:43 Hct 39.9 % (30.3-42.9) 06/27/22 22:43 MCV 88 fl (79-97) 06/27/22 22:43 MCH 29 pg (28-32) 06/27/22 22:43 MCHC 33 % (30-34) 06/27/22 22:43 RDW 14.2 % (13.2-15.2) 06/27/22 22:43 Plt Count 244 K/mm3 (140-440) 06/27/22 22:43 Lymph % (Auto) 18.9 % (13.4-35.0) 06/27/22 22:43 Alexander % (Auto) 11.0 % (0.0-7.3) H 06/27/22 22:43 Eos % (Auto) 0.6 % (0.0-4.3) 06/27/22 22:43 Baso % (Auto) 0.8 % (0.0-1.8) 06/27/22 22:43 Lymph # (Auto) 1.2 K/mm3 (1.2-5.4) 06/27/22 22:43 Alexander # (Auto) 0.7 K/mm3 (0.0-0.8) 06/27/22 22:43 Eos # (Auto) 0.0 K/mm3 (0.0-0.4) 06/27/22 22:43 Baso # (Auto) 0.1 K/mm3 (0.0-0.1) 06/27/22 22:43 Seg Neutrophils % 68.7 % (40.0-70.0) 06/27/22 22:43 Seg Neutrophils # 4.4 K/mm3 (1.8-7.7) 06/27/22 22:43 Sodium 140 mmol/L (137-145) 06/27/22 22:43 Potassium 3.9 mmol/L (3.6-5.0) 06/27/22 22:43 Chloride 101.3 mmol/L (98-107) 06/27/22 22:43 Carbon Dioxide 22 mmol/L (22-30) 06/27/22 22:43 Anion Gap 21 mmol/L 06/27/22 22:43 BUN 9 mg/dL (7-17) 06/27/22 22:43 Creatinine 0.7 mg/dL (0.6-1.2) 06/27/22 22:43 Estimated GFR > 60 ml/min 06/27/22 22:43 BUN/Creatinine Ratio 13 % 06/27/22 22:43 Glucose 109 mg/dL (65-100) H 06/27/22 22:43 POC Glucose 141 mg/dL (70-105) H 06/27/22 17:22 Hemoglobin A1c 5.5 % (4-6) 06/27/22 22:43 Calcium 9.9 mg/dL (8.4-10.2) 06/27/22 22:43 Total Bilirubin 1.40 mg/dL (0.1-1.2) H 06/27/22 22:43 AST 18 units/L (5-40) 06/27/22 22:43 ALT 13 units/L (7-56) 06/27/22 22:43 Alkaline Phosphatase 101 units/L (35-129) 06/27/22 22:43 Total Protein 6.4 g/dL (6.3-8.2) 06/27/22 22:43 Albumin 4.4 g/dL (3.9-5) 06/27/22 22:43 Albumin/Globulin Ratio 2.2 % 06/27/22 22:43 Triglycerides 83 mg/dL (2-149) 06/27/22 22:43 Cholesterol 189 mg/dL (50-199) 06/27/22 22:43 LDL Cholesterol Direct 102 mg/dL (50-130) 06/27/22 22:43 HDL Cholesterol 69 mg/dL (40-59) H 06/27/22 22:43 Cholesterol/HDL Ratio 2.73 % 06/27/22 22:43 TSH 2.570 mlU/mL (0.270-4.200) 06/27/22 22:43 Last Vital Signs Temp 98.4 F 07/02/22 08:18 Pulse 89 07/02/22 08:18 Resp 18 07/02/22 08:18 BP 151/70 07/02/22 08:18 Pulse Ox 93 07/02/22 08:18
[2022-07-02] MEDS: MEMANTINE 10 MG TAB PO SCH ×2 (09:19→21:06)
[2022-07-02] MEDS: risperiDONE 0.25 MG TAB PO SCH ×2 (09:19→21:06)
[2022-07-02] MEDS: APIXABAN 2.5 MG TAB PO SCH ×2 (09:19→21:25)
[2022-07-02] MEDS: PARoxetine 20 MG TAB PO SCH (09:19)
[2022-07-02] MEDS: LISINOPRIL 5 MG TAB PO SCH (09:19)
[2022-07-02] MEDS: traZODone 100 MG TAB PO SCH (21:06)
[2022-07-03 07:28] VITALS: BP 135/64
--- NOTE | 2022-07-03 08:45 | Progress Note ---
Subjective Date of service: 06/26/22 Principal diagnosis: Dementia with Behavioral Disturbance Subjective Comment: 07/03: Patient was seen today. Patient was alert, disoriented x3, and cooperative throughout the interview. Patient reports feeling "draggy," and tired throughout the day. Patient reports sleeping well at night. Patient reports okay appetite. Patient denies depressed mood, denies SI HI or hallucinations. 07/02: Patient was seen today. Patient was alert, disoriented x3, and cooperative but tangential throughout the interview. Patient reports feeling "just as well as I've always been." Patient reports "getting in the dumps," yesterday because she couldn't get home to her parents, who live next door to her and her in [place], [place]. Patient became tearful while talking about how her parents are older and don't have much time left on this earth, and she wants to see them. Patient interested in contacting family to let them know where she is. Patient reports feeling okay today. Patient denies suicidal ideation, homicidal ideation, and hallucinations. Patient reports good sleep and appetite. 07/01: Patient was seen today. Patient was alert, disoriented x3, but cooperative throughout the interview. Patient responds tangentially throughout the interview. Patient reports feeling disappointed because she wasn't able to go home yesterday. Patient reports "I was praying I was going home. It was a little bit of a let down." Patient denies suicidal ideation "I don't never want to hurt myself." Patient repeatedly references her parents "who are up in their ages." Patient unable to tell me what year is it, where she is, who the last president was. Patient reports thinking about having someone come in for half the day to help take care of her when she leaves the hospital. Patient reports good sleep and good appetite. Patient denies HI AVH. 06/30: Patient was seen today. Patient was alert, disoriented x3, but cooperative throughout the interview. Patient responds tangentially throughout the interview. Patient reports feeling "not so hot yet." Patient reports she's not able to remember why she was brought to the hospital. "I have no idea how this got so horrible." Patient denies feeling depressed and denies history of suicidal ideation with protective factors of her grandchildren "I don't want to leave them." Patient reports anxiety d/t missing her grandchildren. Patient re ports feeling fearful because she doesn't know why she's here. Patient reports good sleep and good appetite. Patient denies HI AVH. 06/29: The patient was seen today. She's less anxious today. She is still confused and delusional. She is speaking nonsensically. 06/28: The patient was seen today. She was admitted to [facility] for threatening to blow her brains out. During my evaluation, the patient is confused. She is pacing, and easily irritable. She is confused, with disorganized thoughts. She is delusional. She is walking around and appears to be looking for something. She says "I didn't hire you. You don't have to do anything. March on out of here." She is observed going into another patient's room. I clinic md associate front of the door to try and keep her out. She pushes me to the side and goes in the room. The patient calls me an "asshole." Staff says the patient has been delusional, paranoid and hallucinating. MENTAL STATUS EXAMINATION General Appearance and Behavior: Age appropriate, wearing appropriate clothes, cooperative, pleasant Cooperation: cooperative Psychomotor Behavior: Psychomotor normal Mood: "okay," Affect and affective range: calm throughout, tearful Thought Process: Goal-oriented, tangential Thought Content: Reality based Speech: Normal volume, Regular rate and rhythm Suicidal Ideation: Denies Homicidal Ideation: Denies Hallucination: Denies Delusions: Denies Impulse Control: Normal Insight and Judgment: Fair Memory: Poor Attention: Focused Orientation: Alert, not oriented Diagnoses: Dementia with Behavioral Disturbance Major Depressive Disorder Treatment Plan Patient admitted for inpatient psychiatric evaluation, medication adjustment and close monitoring The patient's behavior, mood, sleep and appetite will be closely monitored. Patient enrolled in individual and group therapeutic sessions and encouraged to attend. Patient provided with a safe and structured environment. Patient's physical health needs will be addressed by the Hospitalist. Hospitalist Consulted Labs including CBC, CMP, Lipid profile and Hemoglobin A1C levels ordered for baseline reference Social Assessment will be completed and the High School Business Teacher will work with patient and family to ensure a suitable and safe disposition Medication adjustment will be made as clinically indicated Continue meds Patient cleared for discharge to outpatient services Patient to follow-up with neurology for further evaluation and management of vascular dementia Usual Wellness Yazidism/Preservation The patient agreed on the treatment plan, understood the risk, benefit, alternative treatment, potential consequence of no treatment, and gave informed consent. Estimated days: 0 Post hospital care: primary care provider, psychiatric provider Case staffed with Dr. Long Medications and Allergies Allergies Allergy/AdvReac Type Severity Reaction Status Date / Time azithromycin Allergy Unknown Unverified 06/27/22 16:34 levofloxacin [From Levaquin] Allergy Unknown Unverified 06/27/22 16:34 oxytetracycline Allergy Unknown Unverified 06/27/22 16:34 [From Terramycin] Home Medications Medication Instructions Recorded Confirmed Last Taken Type Apixaban [Eliquis] 2.5 mg PO BID 06/27/22 06/27/22 Unknown History Lisinopril [Zestril] 5 mg PO DAILY 06/27/22 06/27/22 Unknown History Rosuvastatin Calcium [Crestor] 20 mg PO DAILY 06/27/22 06/27/22 Unknown History Melatonin [Melatonin 5MG TAB] 5 mg PO QHS PRN tablet 07/03/22 Unknown Rx Memantine 10 mg PO BID 30 Days #60 tab 07/03/22 Unknown Rx PARoxetine [Paxil] 20 mg PO DAILY 30 Days #30 tab 07/03/22 Unknown Rx risperiDONE [RisperDAL] 0.5 mg PO BID 30 Days #60 tab 07/03/22 Unknown Rx traZODone [Desyrel] 50 mg PO QHS 30 Days #15 tablet 07/03/22 Unknown Rx Active Meds: Active Medications Apixaban (Apixaban 2.5 Mg Tab) 2.5 mg PO BID [facility] Last Admin: 07/02/22 21:25 Dose: 2.5 mg Atorvastatin Calcium (Atorvastatin 40 Mg Tab) 80 mg PO QHS [facility] Last Admin: 07/02/22 21:05 Dose: 80 mg Lisinopril (Lisinopril 5 Mg Tab) 5 mg PO DAILY [facility] Last Admin: 07/02/22 09:19 Dose: 5 mg Melatonin (Melatonin 5 Mg Tab) 5 mg PO QHS PRN PRN Reason: Sleep Last Admin: 06/28/22 00:35 Dose: 5 mg Memantine (Memantine 10 Mg Tab) 10 mg PO BID [facility] Last Admin: 07/02/22 21:06 Dose: 10 mg Paroxetine HCl (Paroxetine 20 Mg Tab) 20 mg PO DAILY [facility] Last Admin: 07/02/22 09:19 Dose: 20 mg Risperidone (Risperidone 0.25 Mg Tab) 0.5 mg PO BID [facility] Last Admin: 07/02/22 21:06 Dose: 0.5 mg Trazodone HCl (Trazodone 100 Mg Tab) 50 mg PO QHS [facility] Last Admin: 07/02/22 21:06 Dose: 50 mg Results - Results Labs/Vitals: Laboratory Last Values WBC 6.4 K/mm3 (4.5-11.0) 06/27/22 22:43 RBC 4.52 M/mm3 (3.65-5.03) 06/27/22 22:43 Hgb 13.2 gm/dl (10.1-14.3) 06/27/22 22:43 Hct 39.9 % (30.3-42.9) 06/27/22 22:43 MCV 88 fl (79-97) 06/27/22 22:43 MCH 29 pg (28-32) 06/27/22 22:43 MCHC 33 % (30-34) 06/27/22 22:43 RDW 14.2 % (13.2-15.2) 06/27/22 22:43 Plt Count 244 K/mm3 (140-440) 06/27/22 22:43 Lymph % (Auto) 18.9 % (13.4-35.0) 06/27/22 22:43 [place] % (Auto) 11.0 % (0.0-7.3) H 06/27/22 22:43 Eos % (Auto) 0.6 % (0.0-4.3) 06/27/22 22:43 Baso % (Auto) 0.8 % (0.0-1.8) 06/27/22 22:43 Lymph # (Auto) 1.2 K/mm3 (1.2-5.4) 06/27/22 22:43 [place] # (Auto) 0.7 K/mm3 (0.0-0.8) 06/27/22 22:43 Eos # (Auto) 0.0 K/mm3 (0.0-0.4) 06/27/22 22:43 Baso # (Auto) 0.1 K/mm3 (0.0-0.1) 06/27/22 22:43 Seg Neutrophils % 68.7 % (40.0-70.0) 06/27/22 22:43 Seg Neutrophils # 4.4 K/mm3 (1.8-7.7) 06/27/22 22:43 Sodium 140 mmol/L (137-145) 06/27/22 22:43 Potassium 3.9 mmol/L (3.6-5.0) 06/27/22 22:43 Chloride 101.3 mmol/L (98-107) 06/27/22 22:43 Carbon Dioxide 22 mmol/L (22-30) 06/27/22 22:43 Anion Gap 21 mmol/L 06/27/22 22:43 BUN 9 mg/dL (7-17) 06/27/22 22:43 Creatinine 0.7 mg/dL (0.6-1.2) 06/27/22 22:43 Estimated GFR > 60 ml/min 06/27/22 22:43 BUN/Creatinine Ratio 13 % 06/27/22 22:43 Glucose 109 mg/dL (65-100) H 06/27/22 22:43 POC Glucose 141 mg/dL (70-105) H 06/27/22 17:22 Hemoglobin A1c 5.5 % (4-6) 06/27/22 22:43 Calcium 9.9 mg/dL (8.4-10.2) 06/27/22 22:43 Total Bilirubin 1.40 mg/dL (0.1-1.2) H 06/27/22 22:43 AST 18 units/L (5-40) 06/27/22 22:43 ALT 13 units/L (7-56) 06/27/22 22:43 Alkaline Phosphatase 101 units/L (35-129) 06/27/22 22:43 Total Protein 6.4 g/dL (6.3-8.2) 06/27/22 22:43 Albumin 4.4 g/dL (3.9-5) 06/27/22 22:43 Albumin/Globulin Ratio 2.2 % 06/27/22 22:43 Triglycerides 83 mg/dL (2-149) 06/27/22 22:43 Cholesterol 189 mg/dL (50-199) 06/27/22 22:43 LDL Cholesterol Direct 102 mg/dL (50-130) 06/27/22 22:43 HDL Cholesterol 69 mg/dL (40-59) H 06/27/22 22:43 Cholesterol/HDL Ratio 2.73 % 06/27/22 22:43 TSH 2.570 mlU/mL (0.270-4.200) 06/27/22 22:43 Last Vital Signs Temp 98.6 F 07/03/22 06:36 Pulse 82 07/03/22 06:36 Resp 18 07/03/22 06:36 BP 135/64 07/03/22 06:36 Pulse Ox 95 07/03/22 06:36
[2022-07-03] MEDS: MEMANTINE 10 MG TAB PO SCH (09:32)
[2022-07-03] MEDS: PARoxetine 20 MG TAB PO SCH (09:32)
[2022-07-03] MEDS: LISINOPRIL 5 MG TAB PO SCH (09:33)
[2022-07-03] MEDS: APIXABAN 2.5 MG TAB PO SCH (09:33)
[2022-07-03] MEDS ORDERED: risperiDONE 0.25 MG TAB PO SCH ×2 (10:00→22:00)
--- NOTE | 2022-07-03 10:33 | Discharge Summary ---
Providers - Providers Date of Admission: 06/27/22 17:00 Date of discharge: 07/03/22 Attending physician: ROSARIO RIZO MD 06/27/22 15:00 Consult to Physician [CONS] Routine Comment: Consulting Provider: KOSTA ABEL Physician Instructions: Reason For Exam: manage medical conditions Primary care physician: HOMICIDE INVESTIGATOR Hospitalization Reason for admission: Danger to self, Failure of Outpatient Treatment, Severe anxiety/depression, Admitting Diagnosis: F01.51 - VASCULAR DEMENTIA WITH BEHAVIORAL DISTURBANCE Condition: Stable Hospital course: The patient was provided inpatient psychiatric treatment with safe and supportive care, medication adjustment, adverse effect monitoring, medical evaluations, medical treatments, assessment and psycho-education. The patient's mood, cognition, behavior, moral support are improved and stabilized. St the time of discharge, the patient had no endangering behavior and no debilitating adverse effects. The patient agreed on potential consequences of no treatment and gave informed consent. 07/03: Patient was seen today. Patient was alert, disoriented x3, and cooperative throughout the interview. Patient reports feeling "draggy," and tired throughout the day. Patient reports sleeping well at night. Patient reports okay appetite. Patient denies depressed mood, denies SI HI or hallucinations. 07/02: Patient was seen today. Patient was alert, disoriented x3, and cooperative but tangential throughout the interview. Patient reports feeling "just as well as I've always been." Patient reports "getting in the dumps," yesterday because she couldn't get home to her parents, who live next door to her and her in [place], [place]. Patient became tearful while talking about how her parents are older and don't have much time left on this earth, and she wants to see them. Patient interested in contacting family to let them know where she is. Patient reports feeling okay today. Patient denies suicidal ideation, homicidal ideation, and hallucinations. Patient reports good sleep and appetite. 07/01: Patient was seen today. Patient was alert, disoriented x3, but cooperative throughout the interview. Patient responds tangentially throughout the inte rview. Patient reports feeling disappointed because she wasn't able to go home yesterday. Patient reports "I was praying I was going home. It was a little bit of a let down." Patient denies suicidal ideation "I don't never want to hurt myself." Patient repeatedly references her parents "who are up in their ages." Patient unable to tell me what year is it, where she is, who the last president was. Patient reports thinking about having someone come in for half the day to help take care of her when she leaves the hospital. Patient reports good sleep and good appetite. Patient denies HI AVH. 06/30: Patient was seen today. Patient was alert, disoriented x3, but cooperative throughout the interview. Patient responds tangentially throughout the interview. Patient reports feeling "not so hot yet." Patient reports she's not able to remember why she was brought to the hospital. "I have no idea how this got so horrible." Patient denies feeling depressed and denies history of suicidal ideation with protective factors of her grandchildren "I don't want to leave them." Patient reports anxiety d/t missing her grandchildren. Patient reports feeling fearful because she doesn't know why she's here. Patient reports good sleep and good appetite. Patient denies HI AVH. 06/29: The patient was seen today. She's less anxious today. She is still confuse d and delusional. She is speaking nonsensically. 06/28: The patient was seen today. She was admitted to [facility] for threatening to blow her brains out. During my evaluation, the patient is confused. She is pacing, and easily irritable. She is confused, with disorganized thoughts. She is delusional. She is walking around and appears to be looking for something. She says "I didn't hire you. You don't have to do anything. March on out of here." She is observed going into another patient's room. I analytics intern front of the door to try and keep her out. She pushes me to the side and goes in the room. The patient calls me an "asshole." Staff says the patient has been delusional, paranoid and hallucinating. Disposition: 01 HOME / SELF CARE / HOMELESS Time spent for discharge: 35 Allergies/Adverse Reactions: Allergies azithromycin Allergy (Unverified 06/27/22 16:34) Unknown levofloxacin [From Levaquin] Allergy (Unverified 06/27/22 16:34) Unknown oxytetracycline [From Terramycin] Allergy (Unverified 06/27/22 16:34) Unknown Vital Signs: Last Vital Signs Temp 98.6 F 07/03/22 09:33 Pulse 82 07/03/22 09:33 Resp 18 07/03/22 09:33 BP 135/64 07/03/22 09:33 Pulse Ox 94 07/03/22 09:33 Last Lab: Laboratory Last Values WBC 6.4 K/mm3 (4.5-11.0) 06/27/22 22:43 RBC 4.52 M/mm3 (3.65-5.03) 06/27/22 22:43 Hgb 13.2 gm/dl (10.1-14.3) 06/27/22 22:43 Hct 39.9 % (30.3-42.9) 06/27/22 22:43 MCV 88 fl (79-97) 06/27/22 22:43 MCH 29 pg (28-32) 06/27/22 22:43 MCHC 33 % (30-34) 06/27/22 22:43 RDW 14.2 % (13.2-15.2) 06/27/22 22:43 Plt Count 244 K/mm3 (140-440) 06/27/22 22:43 Lymph % (Auto) 18.9 % (13.4-35.0) 06/27/22 22:43 [place] % (Auto) 11.0 % (0.0-7.3) H 06/27/22 22:43 Eos % (Auto) 0.6 % (0.0-4.3) 06/27/22 22:43 Baso % (Auto) 0.8 % (0.0-1.8) 06/27/22 22:43 Lymph # (Auto) 1.2 K/mm3 (1.2-5.4) 06/27/22 22:43 [place] # (Auto) 0.7 K/mm3 (0.0-0.8) 06/27/22 22:43 Eos # (Auto) 0.0 K/mm3 (0.0-0.4) 06/27/22 22:43 Baso # (Auto) 0.1 K/mm3 (0.0-0.1) 06/27/22 22:43 Seg Neutrophils % 68.7 % (40.0-70.0) 06/27/22 22:43 Seg Neutrophils # 4.4 K/mm3 (1.8-7.7) 06/27/22 22:43 Sodium 140 mmol/L (137-145) 06/27/22 22:43 Potassium 3.9 mmol/L (3.6-5.0) 06/27/22 22:43 Chloride 101.3 mmol/L (98-107) 06/27/22 22:43 Carbon Dioxide 22 mmol/L (22-30) 06/27/22 22:43 Anion Gap 21 mmol/L 06/27/22 22:43 BUN 9 mg/dL (7-17) 06/27/22 22:43 Creatinine 0.7 mg/dL (0.6-1.2) 06/27/22 22:43 Estimated GFR > 60 ml/min 06/27/22 22:43 BUN/Creatinine Ratio 13 % 06/27/22 22:43 Glucose 109 mg/dL (65-100) H 06/27/22 22:43 POC Glucose 141 mg/dL (70-105) H 06/27/22 17:22 Hemoglobin A1c 5.5 % (4-6) 06/27/22 22:43 Calcium 9.9 mg/dL (8.4-10.2) 06/27/22 22:43 Total Bilirubin 1.40 mg/dL (0.1-1.2) H 06/27/22 22:43 AST 18 units/L (5-40) 06/27/22 22:43 ALT 13 units/L (7-56) 06/27/22 22:43 Alkaline Phosphatase 101 units/L (35-129) 06/27/22 22:43 Total Protein 6.4 g/dL (6.3-8.2) 06/27/22 22:43 Albumin 4.4 g/dL (3.9-5) 06/27/22 22:43 Albumin/Globulin Ratio 2.2 % 06/27/22 22:43 Triglycerides 83 mg/dL (2-149) 06/27/22 22:43 Cholesterol 189 mg/dL (50-199) 06/27/22 22:43 LDL Cholesterol Direct 102 mg/dL (50-130) 06/27/22 22:43 HDL Cholesterol 69 mg/dL (40-59) H 06/27/22 22:43 Cholesterol/HDL Ratio 2.73 % 06/27/22 22:43 TSH 2.570 mlU/mL (0.270-4.200) 06/27/22 22:43 Core Measure Documentation - Palliative Care Palliative Care/ Comfort Measures: Not Applicable - Core Measures Any of the following diagnoses?: none Exam - Constitutional Vitals: Temp Pulse Resp BP Pulse Ox 98.6 F 82 18 135/64 94 07/03/22 09:33 07/03/22 09:33 07/03/22 09:33 07/03/22 09:33 07/03/22 09:33 General appearance: Present: no acute distress - EENT Eyes: Present: PERRL, EOM intact ENT: hearing intact - Neck Neck: Present: normal ROM - Respiratory Respiratory effort: normal Plan Activity: advance as tolerated Weight Bearing Status: Weight Bear as Tolerated Diet: regular Care Plan Goals: Maintain good and stable mental health Plan of Treatment: The patient should be compliant with medications, not to use drugs, and not to drink alcohol. The patient understands that if suicidal ideas, homicidal ideas or any endangering feeling arise, the patient should seek assistance including, but not limited to crisis hotline, and emergency room. Assessment: Vascular dementia with behavioral disturbance Follow up with: PRIMARY CARE, [Primary Care Provider] - 7 Days Prescriptions: traZODone [Desyrel] 50 mg PO QHS 30 Days #15 tablet Memantine 10 mg PO BID 30 Days #60 tab PARoxetine [Paxil] 20 mg PO DAILY 30 Days #30 tab risperiDONE [RisperDAL] 0.5 mg PO BID 30 Days #60 tab
== END 2022-07-03 13:04 | disposition home or self-care (01) | DRG 884 ==
LOC: 3A 12:36 → UNDOADMIN 12:36 → 5A 17:00
PROVIDERS: ADMIT Psychiatry & Neurology Psychiatry; ATTEND Psychiatry & Neurology Psychiatry
DX: F01.51 Vascular dementia, unspecified severity, with behavioral disturbance (principal); F32.9 Major depressive disorder, single episode, unspecified
CPT/HCPCS: 36415; 80053; 80061; 82962; 83036; 84443; 85025; G0378